=== PATIENT | male | born 1940 | race Caucasian/White ===

== ENCOUNTER 2019-12-12 13:27 | Emergency (ER) | payer MEDICARE, SELFPAY ==
[2019-12-12 13:33] VITALS: BP 212/88; PULSE 61; RESP 20; TEMP 36.7; O2SAT 98
--- NOTE | 2019-12-12 13:55 | ED.EAR ---
HPI - Ear Problem General Chief complaint: Ear Stated complaint: bug in ear Time Seen by Provider: 12/12/19 13:48 Source: patient Mode of arrival: ambulatory Limitations: no limitations History of Present Illness HPI Narrative: This is a 79 year old male that presents to the ER for a bug in his left ear. Reports he was working on his boat and killed a spider. Reports he then felt a spider crawl into his ear. Reports he could feel the spider moving around in there. Denies otalgia. Related Data Home Medications Medication Instructions Recorded Confirmed aspirin 325 mg tablet 325 mg PO DAILY 09/30/19 atorvastatin 40 mg tablet 40 mg PO DAILY 09/30/19 Allergies Allergy/AdvReac Type Severity Reaction Status Date / Time amoxicillin Allergy Severe rash Verified 12/12/19 13:35 Heparin Analogues Allergy Mild Unknown Verified 12/12/19 13:35 fentanyl Allergy Unknown Unknown Verified 12/12/19 13:35 heparin Allergy Unknown Unknown Verified 12/12/19 13:35 Penicillins Allergy Unknown Rash Verified 12/12/19 13:35 CEFTUXIMAB Allergy Unknown Unknown Uncoded 12/12/19 13:35 Review of Systems Review of Systems: Narrative: CONSTITUTIONAL: Denies fever ENT: Reports ear foreign body All systems reviewed & are unremarkable except as noted in HPI and below PMFSH Past Medical History Medical History (Updated 12/12/19 @ 14:00 by Adrianna Jones PA-C) HLD (hyperlipidemia) Hypertensive heart disease without congestive heart failure Hypothyroidism Squamous cell carcinoma of left tonsil Surgical History Surgical History (Updated 12/12/19 @ 13:57 by Adrianna Jones PA-C) History of coronary artery stent placement History of tonsillectomy s/p left w/ neck disection 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 HEAD: Normocephalic, atraumatic. EYES: EOMI. ENT: Left external auditory canal with spider present EXTREMITIES: Normal range of motion. No edema. SKIN: Warm, dry, no rash. NEURO: No focal deficits. Alert and oriented x3. PSYCH: Normal mood and affect Course Vital Signs Vital signs: Vital Signs Temperature 98.0 F 12/12/19 13:33 Pulse Rate 61 12/12/19 13:33 Respiratory Rate 20 12/12/19 13:33 Blood Pressure 212/88 H 12/12/19 13:33 Pulse Oximetry 98 12/12/19 13:33 Temperature 98.0 F 12/12/19 13:33 Pulse Rate 61 12/12/19 13:33 Respiratory Rate 20 12/12/19 13:33 Blood Pressure 212/88 H 12/12/19 13:33 Pulse Oximetry 98 12/12/19 13:33 Procedures FB Removal Ear Foreign Body #1: Foreign Body Removal Date: 12/12/19 Foreign Body Removal Time: 13:58 Location: ear canal (L) Foreign Body Suspected: insect TM intact pre-procedure: unable to visualize If Insect Suspected: ear canal instilled with other (saline) Foreign Body Removed: yes Foreign Body Removal Technique: curette Tympanic Membrane Intact Post Procedure: Yes Patient Tolerated Procedure: well Complications: none Medical Decision Making MDM Narrative Medical decision making narrative: Patient presents the emergency department for a bug in his left ear. This was successfully removed. External auditory canal and TM are normal after removal. Patient's blood pressure was elevated on arrival to the ED. He was instructed to follow-up with his primary care doctor for this h
[2019-12-12 14:26] VITALS: BP 174/84
== END 2019-12-12 14:27 | disposition home or self-care (01) ==
LOC: ANHED 14:05
PROVIDERS: Emergency Provider Emergency Medicine; PCP Family Medicine
DX: T16.2XXA Foreign body in left ear, initial encounter (principal); E78.5 Hyperlipidemia, unspecified; E03.9 Hypothyroidism, unspecified; Z79.82 Long term (current) use of aspirin; Z85.29 Personal history of malignant neoplasm of other respiratory and intrathoracic organs; I11.9 Hypertensive heart disease without heart failure; Z95.5 Presence of coronary angioplasty implant and graft; Z96.642 Presence of left artificial hip joint; Z87.891 Personal history of nicotine dependence
CPT/HCPCS: 69200; 99282; A9270

== ENCOUNTER → 2020-12-18 07:40 | Outpatient (CLI) | payer MEDICARE, SELFPAY ==
[2020-12-18 19:22] LABS: SARS-CoV-2 RNA PCR Negative
== END ==
PROVIDERS: PCP Family Medicine; Visit Provider Surgery
DX: Z01.812 Encounter for preprocedural laboratory examination (principal); Z20.822 Contact with and (suspected) exposure to COVID-19
CPT/HCPCS: C9803; U0003; U0005

== ENCOUNTER 2020-12-21 01:32 | Day surgery (SDC) | payer MEDICARE, SELFPAY ==
[2020-12-09 13:13] VITALS: BMI 31.1
--- NOTE | 2020-12-09 13:30 | PC.NURSE ---
12/09/[address] mueller about pt ,carotid stent 11/18,no further testing required.
[2020-12-21] VITALS (8 sets, daily range): BP systolic 142–185; BP diastolic 66–81; PULSE 50–74; RESP 14–20; TEMP 36.3–36.7; O2SAT 97–100
--- NOTE | 2020-12-21 11:10 | WPDANESEPPF ---
Anes - Initial Pre Proc Eval Procedure: Operation Date: 12/21/20 12:00 Proposed Procedures p Open Ventral Hernia Repair With Mesh - Ced Yanez DO Date/Time: 12/21/20 11:10 Surgeon: Ced Yanez DO Pre Op Diagnosis: ventral hernia Patient Data Age: 80 Gender: M Height: 1.7 m Weight: 90 kg Allergies Allergy/AdvReac Type Severity Reaction Status Date / Time fentanyl AdvReac Severe HEAD/FACE/UPPER Verified 12/21/20 10:31 TORSO PIMPLE TYPE RASH amoxicillin AdvReac Mild rash Verified 12/21/20 10:31 cetuximab [From Erbitux] AdvReac Mild Rash Verified 12/21/20 10:31 heparin AdvReac Mild Unknown Verified 12/21/20 10:31 Heparin Analogues AdvReac Mild Unknown Verified 12/21/20 10:31 Penicillins AdvReac Mild Rash Verified 12/21/20 10:31 Home Medications Medication Instructions Recorded Confirmed Type levothyroxine 88 mcg capsule 88 mcg PO DAILY #90 cap 10/27/20 12/21/20 Rx acetaminophen 500 mg capsule 500 mg PO Q6H PRN 11/11/20 12/21/20 History aspirin 81 mg tablet,delayed 81 mg PO DAILY 11/11/20 12/21/20 History release cholecalciferol (vitamin D3) 25 25 mcg PO DAILY 11/11/20 12/21/20 History mcg (1,000 unit) capsule clopidogrel 75 mg tablet 75 mg PO DAILY 11/11/20 12/21/20 History magnesium oxide 250 mg PO DAILY 11/11/20 12/21/20 History omega 8-itj-rnw-fish oil 60 mg-90 1 cap PO DAILY 11/11/20 12/21/20 History mg-500 mg capsule atorvastatin 40 mg PO DAILY 12/21/20 12/21/20 History meloxicam 15 mg PO DAILY 12/21/20 12/21/20 History metoprolol tartrate 25 mg PO DAILY 12/21/20 12/21/20 History Patient hx anesthesia problems: none Family hx anesthesia problems: none PMFSH Past Medical History Medical History (Updated 12/21/20 @ 08:10 by Vignesh Turk DO) Carotid stenosis, bilateral History of heart attack HLD (hyperlipidemia) Hypertensive heart disease without congestive heart failure Hypothyroidism Squamous cell carcinoma of left tonsil Surgical History Surgical History (Updated 12/21/20 @ 11:15 by Vignesh Turk DO) History of coronary artery stent placement History of tonsillectomy s/p left w/ neck disection Internal carotid artery stent present Right, 10/2020 S/P CABG (coronary artery bypass graft) 2009, x3 vessel Status post left hip replacement Family History Family History Unknown Heart disease Lung cancer Other Cerebrovascular accident Family history of arthritis Hypertension Social History Social History Social History: Smoking packs per day: 0.5 Smoking cigarettes per day: 10.0 Years smoked: 30 Smoking pack-years: 15.00 Smoking status: Former smoker Tobacco type: cigarettes and cigars Second hand tobacco smoke exposure: No Smoking end date: 07/31/99 Alcohol intake: never Substance use: never Substance use type: does not use Living arrangements: with family Gender identity (if verbalized by the patient): Male Spiritual care concerns: No Anes - Eval Final PreProcedure Day of Procedure 12/21/20 11:10 Patient weight: obese Heart: regular rate and rhythm Lungs: clear to auscultation and normal air movement Airway: Mallampati scale class III Neurological: alert and oriented Last oral intake: >/= 8 hours ASA classification: III Emergent: no Anesthetic plan: proceed Anesthesia type and monitoring: general ETT and standard monitoring Informed Consent: The patient's anesthetic plan and its attendant risks and benefits were discussed with the patient/family/POA. Questions were solicited and answers provided to the satisfaction of the patient/family/POA.
[2020-12-21] MEDS: ACETAMINOPHEN 500 MG TABLET 1000 MG PO (11:15)
--- NOTE | 2020-12-21 11:26 | WPDHPUPDATE1 ---
History and Physical Update Update Date/Time: 12/21/20 11:26 History and Physical has been reviewed, including an updated exam of the patient. There are NO changes in the patient's condition. Risks, benefits, and alternatives have been discussed and questions answered. Patient agrees to proceed with procedure.
[2020-12-21] MEDS: LACTATED RINGERS 1,000 ML 30 ML IV CONT (11:30)
[2020-12-21] MEDS: KETOROLAC 15 MG/ML VIAL (*BKC) IV PUSH (11:35)
[2020-12-21] MEDS: ceFAZolin 2 GM/D5W 50 ML 2 GM/50 ML BAG IVPB (12:09)
[2020-12-21] MEDS: BUPIVACAINE/EPINEPHRINE 0.25% 10 ML VIAL 30 ML INFILTRATE (12:29)
--- NOTE | 2020-12-21 13:01 | PM.PROC ---
Procedure Note - Detailed Date of procedure: 12/21/20 Pre-op diagnosis: ventral hernia Post-op diagnosis: same Procedure performed: Ventral hernia repair with Parietex ventral patch Description of procedure: Procedure as well as risks, benefits, and alternatives were discussed with the patient. Written consent was obtained and placed in chart prior to procedure. Patient was brought back to surgical suite. He was placed supine on operating table. He was then intubated by Anesthesia Department. His abdomen was prepped and draped in sterile fashion using chlorhexidine prep. 0.5% bupivacaine with epinephrine was infiltrated locally around the operative area. A 4 cm curvilinear incision was made just inferior to the umbilicus using a 15 blade scalpel. Electrocautery was used for hemostasis and for dissection down through the subcutaneous fat. Hernia sac was encountered and this was carefully freed up from surrounding subcutaneous fat using electrocautery. The hernia sac was freed up all the way down to the level of the fascia, and then it was transected using electrocautery. The hernia sac was excised and sent to the lab for pathology. The umbilical stalk was then lifted off of the fascia with electrocautery. The hernia defect was then measured. This was measuring approximately 15 mm. The decision was made to use a 6.6 cm Parietex ventral patch. The peritoneum was cleared under the fascia circumferentially around the hernia using blunt dissection and electrocautery. Once a wide enough pocket was created for the mesh, the mesh was then placed within this preperitoneal pocket and laid out flat centered on the hernia defect. The mesh appeared to be sitting in proper position. The mesh was then secured at the 4 corners using 0 Ethibond U-stitch trans fascial sutures. Once all 4 sutures were placed, the mesh was lifted up against the abdominal wall and appeared to be properly centered on the hernia defect. The fascia of the hernia defect was then reapproximated over the mesh using 0 Ethibond [id number] sutures. The 4 transfascial sutures were then tied down in place. The repair was inspected and appeared secure. 0.5% bupivacaine with epinephrine was infiltrated around the fascia and subcutaneous space. The umbilical stalk was then reapproximated to the fascia using a 3 0 Vicryl simple interrupted suture. The deep dermis was reapproximated using 3 0 Vicryl simple interrupted sutures, and then the skin was approximated using 4 Monocryl running subcuticular suture. Exofin glue was then applied on top. The patient was then awakened from anesthesia, extubated, and transferred to recovery. Implants: 6.6 cm Parietex Ventral Patch Anesthesia: local (0.5% bupivacaine with epinephrine) Surgeon: Ced Yanez DO Estimated blood loss (mL): 5 Pathology: none sent Complications: No immediate complications Condition: stable Disposition: same day Findings: This is an 80-year-old man who presents with a ventral hernia near his umbilicus that has been present for the last year and has been gradually becoming larger. He also notes some discomfort at times with the hernia. His found to have a reducible hernia just inferior to the umbilicus on exam. Discussions were made with the patient about treatment options and decision was made to proceed ventral hernia repair with mesh. Ventral hernia repair was performed. Patient was found to have a 15 mm hernia just inferior to the umbilical stalk. The hernia sac was dissected free from the umbilical skin and was reduced. A preperitoneal pocket was created for our mesh placement. A 6.6 cm Parietex Ventral Patch was then placed within the preperitoneal pocket and secured at the 4 tabs using 0 Ethibond U-stitch trans fascial sutures. No specimens were obtained for pathology.
--- NOTE | 2020-12-21 13:42 | SUR.PHASEI ---
1340- family member updated on pt condition.
== END 2020-12-21 15:09 | disposition home or self-care (01) ==
PROVIDERS: PCP Family Medicine; Visit Provider Surgery
PROC: 0WQF0ZZ Repair Abdominal Wall, Open Approach (ICD-10-PCS; CPT 49560; principal; 2020-12-21 12:00)
DX: K43.9 Ventral hernia without obstruction or gangrene (principal); I11.9 Hypertensive heart disease without heart failure; I25.2 Old myocardial infarction; E78.5 Hyperlipidemia, unspecified; E03.9 Hypothyroidism, unspecified; I65.23 Occlusion and stenosis of bilateral carotid arteries; Z79.02 Long term (current) use of antithrombotics/antiplatelets; Z95.1 Presence of aortocoronary bypass graft; Z87.891 Personal history of nicotine dependence; E66.9 Obesity, unspecified; Z68.30 Body mass index [BMI] 30.0-30.9, adult
CPT/HCPCS: 49560; 49568; A9270; C1781; C9803; J0330; J0690; J1170; J1885; J2704; J7120; U0003; U0005